=== PATIENT | female | born 1945 | race African-American/Black ===

== ENCOUNTER 2022-08-18 17:15 | Emergency (ER) | payer MEDICARE, MEDICAID ==
[~2022-08-18] VITALS: Ht 170.2 cm; Wt 192.0 kg
[~2022-08-18 17:15] MED LIST: ALBU90AE IH; AMLO10TA80 PO; ATOR40TA70 PO; BACL20TA PO; BENA-8 PO; BUDE6HFA INH; CALC260T6 PO; HYDR12.54 PO; IBUP-2030 PO; INSU3INS6 SUBCUT; LEVO175T7 PO; OMEP40CA20 PO
[2022-08-18 18:52] LABS: BASOPHILS % 0.8 % (0.0-2.0); HEMATOCRIT. 40.5 % (36.0-48.0); HEMOGLOBIN. 12.9 g/dL (12.0-16.0); LYMPHOCYTES % 23.5 % (20.0-50.0); MEAN CORPUSCULAR HEMOGLOBIN 26.4 pg (28.0-32.0); MEAN CORPUSCULAR VOLUME 82.5 fL (81.0-99.0); MEAN PLATELET VOLUME 8.2 fl (7.4-10.4); MONOCYTES % 6.7 % (2.0-8.0); PLATELET 170 x1000/uL (130-400)
[2022-08-18 18:55] LABS: CHLORIDE 113 mEq/L (98-107)
[2022-08-18] MEDS ORDERED: CLONIDINE 0.2MG TABLET PO NR (19:00)
[2022-08-18 21:05] VITALS: BP 210/113
[2022-08-18] MEDS ORDERED: AMLODIPINE 5MG TABLET PO ONE (21:15)
== END 2022-08-18 21:44 | disposition home or self-care (01) ==
LOC: ER 17:15
DX: I10 Essential (primary) hypertension (principal); R51.9 Headache, unspecified; E11.9 Type 2 diabetes mellitus without complications; J45.909 Unspecified asthma, uncomplicated; Z79.899 Other long term (current) drug therapy
CPT/HCPCS: 36415; 80053; 84484; 85025; 99284

== ENCOUNTER 2022-12-21 00:38 | Inpatient (IN) | payer MEDICARE, MEDICAID ==
[~2022-12-21] VITALS: Ht 167.6 cm; Wt 127.0 kg
[~2022-12-21 00:38] MED LIST changes: +FURO-151 MT; +HYDR-4133 MT; -HYDR12.54 PO
[2022-12-21] MEDS ORDERED: FUROSEMIDE 40MG/4ML VIAL IVP NR (01:45)
[2022-12-21 02:29] LABS: BASOPHILS % 0.5 % (0.0-2.0); CHLORIDE 108 mEq/L (98-107); EOSINOPHILS % 0.6 % (0.0-5.0); HEMATOCRIT. 37.6 % (36.0-48.0); HEMOGLOBIN. 12.1 g/dL (12.0-16.0); LYMPHOCYTES % 8.7 % (20.0-50.0); MEAN CORPUSCULAR HEMOGLOBIN 26.6 pg (28.0-32.0); MEAN CORPUSCULAR VOLUME 82.9 fL (81.0-99.0); MEAN PLATELET VOLUME 9.5 fl (7.4-10.4); MONOCYTES % 7.9 % (2.0-8.0); NEUTROPHILS % 82.3 % (40.0-76.0); PLATELET 108 x1000/uL (130-400); RED BLOOD CELL COUNT 4.53 mill/uL (4.2-5.4); RED CELL DISTRIBUTION WIDTH 15.5 % (11.6-14.6)
[2022-12-21 03:47] LABS: CLARITY URINE CLOUDY (CLEAR); COLOR URINE YELLOW (YELLOW); KETONES URINE NEGATIVE (NEGATIVE); LEUKOCYTE ESTERASE URINE 3+ (NEGATIVE); NITRITE URINE NEGATIVE (NEGATIVE); OCCULT BLOOD URINE 1+ (NEGATIVE); PH URINE 7.5 (4.5-8.0); PROTEIN URINE 1+ (NEGATIVE); UROBILINOGEN URINE 0.2 E.U./dL (0.2-1.0)
[2022-12-21] MEDS ORDERED: IPRATROPIUM/ALBUTEROL 0.5-3(2.5)MG/3ML NEB HHN PRN (10:30)
[2022-12-21] MEDS ORDERED: MAGNESIUM/ALUMINUM HYDROXIDE/SIMETHICONE 30ML UDC PO PRN (10:30)
[2022-12-21] MEDS ORDERED: ONDANSETRON HCL 4MG/2ML INJ IV PRN (10:30)
[2022-12-21] MEDS ORDERED: GUAIFENESIN 200MG/10ML SUGAR FREE UDC PO PRN (10:30)
[2022-12-21] MEDS ORDERED: ACETAMINOPHEN 325MG TABLET PO PRN ×2 (10:30)
[2022-12-21] MEDS ORDERED: CLONIDINE 0.1MG TABLET PO PRN (10:30)
[2022-12-21] MEDS ORDERED: DOCUSATE SODIUM 100MG CAPSULE PO PRN (10:30)
[2022-12-21] MEDS ORDERED: DEXTROSE 50% WATER 50ML SYRINGE IV PRN (10:45)
[2022-12-21] MEDS ORDERED: CEFTRIAXONE 1GM PREMIX 50 ML IV NR (10:45)
[2022-12-21] MEDS: BLOOD SUGAR DIAGNOSTIC STRIP TEST SCH ×3 (13:17→21:19)
[2022-12-21] MEDS: INSULIN LISPRO 100 UNITS/ML SUBCUT SCH ×2 (13:19→21:34)
[2022-12-21] MEDS: ENOXAPARIN 40MG/0.4ML SYR SUBCUT SCH (13:21)
[2022-12-21] MEDS: AMLODIPINE 5MG TABLET PO SCH (13:23)
[2022-12-21 16:13] LABS: CREATINE KINASE MB FRACTION 1.7 ng/mL (0.5-3.6); PHOSPHORUS 2.5 mg/dL (2.5-4.9)
[2022-12-21] MEDS: HYDRALAZINE HCL 10MG TABLET PO SCH (17:53)
[2022-12-21 20:00] VITALS: BP 127/68
[2022-12-21] MEDS: ATORVASTATIN CALCIUM 40MG TABLET PO SCH (20:59)
[2022-12-21] MEDS ORDERED: FUROSEMIDE 40MG/4 ML UDC PO SCH (21:00)
[2022-12-21 23:15] VITALS: BP 127/68
[2022-12-22] VITALS: BP 166/84
[2022-12-22] MEDS: FUROSEMIDE 20MG TABLET PO SCH ×2 (00:03→07:03)
[2022-12-22 00:10] LABS: CREATINE KINASE MB FRACTION 1.6 ng/mL (0.5-3.6)
[2022-12-22 04:00] VITALS: BP 142/72
[2022-12-22 05:48] LABS: HEMATOCRIT 36.1 % (36.0-48.0); HEMOGLOBIN 11.7 g/dL (12.0-16.0); MEAN CORPUSCULAR HEMOGLOBIN 26.8 pg (28.0-32.0); MEAN CORPUSCULAR VOLUME 82.6 fL (81.0-99.0); PLATELET 100 x1000/uL (130-400); RED BLOOD CELL COUNT 4.37 mill/uL (4.2-5.4); RED CELL DISTRIBUTION WIDTH 15.4 % (11.6-14.6)
[2022-12-22 06:15] LABS: PHOSPHORUS 2.3 mg/dL (2.5-4.9)
[2022-12-22] MEDS: LEVOTHYROXINE SODIUM 175MCG TABLET PO SCH (07:03)
[2022-12-22] MEDS: BLOOD SUGAR DIAGNOSTIC STRIP TEST SCH ×4 (07:03→21:26)
[2022-12-22 08:00] VITALS: BP 114/69
[2022-12-22] MEDS: HYDRALAZINE HCL 10MG TABLET PO SCH ×2 (09:25→17:47)
[2022-12-22] MEDS: AMLODIPINE 5MG TABLET PO SCH (09:25)
[2022-12-22] MEDS: INSULIN LISPRO 100 UNITS/ML SUBCUT SCH ×4 (09:32→21:26)
[2022-12-22 12:00] VITALS: BP 146/71
[2022-12-22] MEDS: ENOXAPARIN 40MG/0.4ML SYR SUBCUT SCH (12:01)
[2022-12-22] MEDS: CEFTRIAXONE 1,000 MG in DEXTROSE 5% WATER 50 ML IV SCH (12:01)
[2022-12-22 16:00] VITALS: BP 143/68
[2022-12-22] MEDS: FUROSEMIDE 40MG TABLET PO SCH (17:46)
[2022-12-22 20:00] VITALS: BP 128/67
[2022-12-22] MEDS: ATORVASTATIN CALCIUM 40MG TABLET PO SCH (21:26)
[2022-12-23] VITALS: BP 128/76
[2022-12-23 04:00] VITALS: BP 142/77
[2022-12-23] MEDS: BLOOD SUGAR DIAGNOSTIC STRIP TEST SCH ×2 (06:44→11:50)
[2022-12-23 08:00] VITALS: BP 133/76
[2022-12-23] MEDS: AMLODIPINE 5MG TABLET PO SCH (08:32)
[2022-12-23] MEDS: FUROSEMIDE 40MG TABLET PO SCH (08:32)
[2022-12-23] MEDS: HYDRALAZINE HCL 10MG TABLET PO SCH (08:32)
[2022-12-23] MEDS: LEVOTHYROXINE SODIUM 175MCG TABLET PO SCH (08:32)
[2022-12-23] MEDS: INSULIN LISPRO 100 UNITS/ML SUBCUT SCH ×2 (08:34→11:50)
[2022-12-23] MEDS: ENOXAPARIN 40MG/0.4ML SYR SUBCUT SCH (11:49)
[2022-12-23] MEDS: CEFTRIAXONE 1,000 MG in DEXTROSE 5% WATER 50 ML IV SCH (11:49)
[2022-12-23 12:00] VITALS: BP 135/73
[2022-12-23 13:59] VITALS: BP 133/73
== END 2022-12-23 15:15 | disposition home health service (06) | DRG 291 ==
LOC: ER 00:38 → 7WST 04:16 → CANRESERV 07:02 → ENRESERV 07:02
PROVIDERS: ADMIT Internal Medicine; ATTEND Internal Medicine
DX: I13.0 Hypertensive heart and chronic kidney disease with heart failure and stage 1 through stage 4 chronic kidney disease, or unspecified chronic kidney disease (principal); I50.41 Acute combined systolic (congestive) and diastolic (congestive) heart failure; J96.01 Acute respiratory failure with hypoxia; J44.1 Chronic obstructive pulmonary disease with (acute) exacerbation; E66.2 Morbid (severe) obesity with alveolar hypoventilation; J98.11 Atelectasis; Z68.43 Body mass index [BMI] 50.0-59.9, adult; N17.9 Acute kidney failure, unspecified; E78.5 Hyperlipidemia, unspecified; E03.9 Hypothyroidism, unspecified; E11.22 Type 2 diabetes mellitus with diabetic chronic kidney disease; E11.65 Type 2 diabetes mellitus with hyperglycemia; N18.30 Chronic kidney disease, stage 3 unspecified; I87.2 Venous insufficiency (chronic) (peripheral); Z99.81 Dependence on supplemental oxygen; Z79.899 Other long term (current) drug therapy; Z87.891 Personal history of nicotine dependence; W18.30XA Fall on same level, unspecified, initial encounter; Y93.89 Activity, other specified; Y92.89 Other specified places as the place of occurrence of the external cause; Y99.8 Other external cause status
CPT/HCPCS: 36415; 71045; 73560; 80048; 80053; 81003; 82550; 82553; 82962; 83735; 83880; 84100; 84145; 84484; 85025; 85027; 93970; 97162; 99285; A6261; J0696; J1650; J1815; J1940; J7060